=== PATIENT | male | born 1975 | race Caucasian/White ===

== ENCOUNTER 2021-06-03 13:47 | Emergency (ER) | payer SELFPAY ==
[2021-06-03] MEDS ORDERED: Ondansetron ODT 4 MG TAB ONE (14:26)
[2021-06-03] MEDS ORDERED: guaiFENesin/Codeine Phosphate 100 mg/10 mg 5 ml UD Cup ONE (14:26)
[2021-06-03] MEDS ORDERED: predniSONE 20 MG TAB ONE (14:44)
[2021-06-03] MEDS ORDERED: Azithromycin 250 MG TAB ONE (14:44)
[2021-06-04 15:21] LABS: SARS-CoV-2 PCR by NAA Not Detected (NotDetected)
== END 2021-06-03 14:50 | disposition home or self-care (01) ==
LOC: MADERS 13:47
DX: J44.1 Chronic obstructive pulmonary disease with (acute) exacerbation (principal); J20.8 Acute bronchitis due to other specified organisms; Z20.822 Contact with and (suspected) exposure to COVID-19; F17.210 Nicotine dependence, cigarettes, uncomplicated
CPT/HCPCS: 71045; 94760; 99406; J7512; Q0162; U0003; U0005